=== PATIENT | female | born 1995 | race African-American/Black ===

== ENCOUNTER → 2017-03-16 | Outpatient (REF) | LOC: WSOH 10:21 | DX: Z02.1 Encounter for pre-employment examination (principal) ==

== ENCOUNTER 2018-11-12 22:17 | Emergency (ER) | payer MEDICAID ==
[~2018-11-12] VITALS: Ht 167.6 cm; Wt 90.9 kg
[~2018-11-12 22:17] MED LIST: ZOFRAN ODT4 MG PO
[2018-11-12 22:37] VITALS: BP 131/58; PULSE 77; TEMP 98.1
[2018-11-13] MEDS ORDERED: AMOXICILLIN 50500 MG PO (00:36)
== END 2018-11-13 00:53 | disposition home or self-care (01) ==
LOC: COL.ER 22:17
DX: J02.0 Streptococcal pharyngitis (principal)

== ENCOUNTER 2019-05-26 15:28 | Emergency (ER) | payer MEDICAID ==
[~2019-05-26] VITALS: Ht 167.6 cm; Wt 95.5 kg
[~2019-05-26 15:28] MED LIST changes: +AMOXICILLIN 50500 MG PO
[2019-05-26 15:42] VITALS: BP 121/85; TEMP 98.2
[2019-05-26 16:28] LABS: COLLECTION METHOD CLEAN CATCH
[2019-05-26 16:40] VITALS: PULSE 96
[2019-05-26] MEDS ORDERED: FLAGYL500 MG PO (16:45)
[2019-05-26 16:57] LABS: MUCOUS Present /lpf; PH 6 (5-8); URINE APPEARANCE Hazy; URINE BACTERIA None Seen /hpf; URINE BILIRUBIN Negative (NEGATIVE); URINE BLOOD 2+ (NEGATIVE); URINE COLOR Yellow; URINE GLUCOSE Negative (NEGATIVE); URINE KETONE Negative (NEGATIVE); URINE LEUKOCYTE ESTERASE Trace (NEGATIVE); URINE NITRATE Negative (NEGATIVE); URINE PROTEIN(semi-quant) Negative (NEGATIVE); URINE RBC 0-2 /hpf; URINE UROBILINOGEN Negative (NEGATIVE)
== END 2019-05-26 16:40 | disposition home or self-care (01) ==
LOC: COL.ER 15:28
PROVIDERS: Emergency Medicine
DX: Z11.3 Encounter for screening for infections with a predominantly sexual mode of transmission (principal)

== ENCOUNTER 2019-10-04 10:40 | Emergency (ER) | payer MEDICAID ==
[~2019-10-04] VITALS: Ht 167.6 cm; Wt 86.8 kg
[~2019-10-04 10:40] MED LIST changes: +FLAGYL500 MG PO
[2019-10-04 11:00] VITALS: BP 121/55; TEMP 97.3
[2019-10-04 13:11] VITALS: PULSE 102
== END 2019-10-04 12:46 | disposition home or self-care (01) ==
LOC: COL.ER 10:40
DX: J06.9 Acute upper respiratory infection, unspecified (principal); F17.210 Nicotine dependence, cigarettes, uncomplicated

== ENCOUNTER 2019-11-17 14:14 | Emergency (ER) | payer MEDICAID ==
[~2019-11-17] VITALS: Ht 167.6 cm; Wt 43.1 kg
[2019-11-17 14:21] VITALS: BP 120/58; TEMP 98.3
[2019-11-17 15:24] LABS: COLLECTION METHOD CLEAN CATCH
[2019-11-17 15:32] LABS: MUCOUS Present /lpf; PH 8 (5-8); SQUAMOUS EPITHELIAL 0-2 /hpf; URINE APPEARANCE Clear; URINE BACTERIA None Seen /hpf; URINE BILIRUBIN Negative (NEGATIVE); URINE BLOOD Negative (NEGATIVE); URINE COLOR Yellow; URINE GLUCOSE Negative (NEGATIVE); URINE KETONE Negative (NEGATIVE); URINE LEUKOCYTE ESTERASE Negative (NEGATIVE); URINE NITRATE Negative (NEGATIVE); URINE PROTEIN(semi-quant) Negative (NEGATIVE); URINE RBC 0-2 /hpf; URINE UROBILINOGEN Negative (NEGATIVE)
[2019-11-17 16:02] LABS: BASO % 0.3 % (0.0-2.0); EOS % 0.5 % (0-4.0); GRAN # 4.2 (1.4-6.5); GRAN % 68.8 % (42.2-75.2); HEMATOCRIT 40.2 % (37.0-47.0); HEMOGLOBIN 12.8 g/dl (12.5-16.0); LYMPH # 1.5 (1.2-3.4); LYMPH % 24.2 % (20.0-51.0); MEAN CELL VOLUME 92 fl (80.0-100.0); MEAN CORPUSCULAR HEMOGLOBIN 29 pg (27.0-31.0); MEAN CORPUSCULAR HGB CONC 32 g/dl (33.0-37.0); MEAN PLATELET VOLUME 10.8 fl (7.4-10.4); MONO # 0.4 (0.1-0.6); PLATELET COUNT 257 K/mm3 (130-400); RED BLOOD COUNT 4.36 M/mm3 (4.10-5.30); REDCELL DISTRIBUTION WIDTH-CV 13.2 % (11.5-14.5)
[2019-11-17 16:47] VITALS: PULSE 70
== END 2019-11-17 16:47 | disposition home or self-care (01) ==
LOC: COL.ER 14:14
PROVIDERS: Physician Assistant
DX: B34.9 Viral infection, unspecified (principal); R42 Dizziness and giddiness; F17.210 Nicotine dependence, cigarettes, uncomplicated

== ENCOUNTER 2020-05-06 14:26 | Emergency (ER) | payer MEDICAID ==
[~2020-05-06] VITALS: Ht 167.6 cm; Wt 81.8 kg
[2020-05-06 15:09] VITALS: TEMP 100.4
[2020-05-06] MEDS ORDERED: PREDNISONE20 MG PO (15:39)
[2020-05-06] MEDS ORDERED: ZITHROMAX Z PA250 MG PO (15:39)
[2020-05-06 15:55] VITALS: BP 140/84; PULSE 91
== END 2020-05-06 15:50 | disposition home or self-care (01) ==
LOC: COL.ER 14:26
DX: J20.9 Acute bronchitis, unspecified (principal); Z20.828 Contact with and (suspected) exposure to other viral communicable diseases; F17.210 Nicotine dependence, cigarettes, uncomplicated